=== PATIENT | female | born 1980 | race African-American/Black ===

== ENCOUNTER 2019-04-12 07:47 | Emergency (ER) | payer OTHER, SELFPAY ==
[2019-04-12] MEDS ORDERED: Ibuprofen 800 MG TAB ONE (08:05)
== END 2019-04-12 08:10 | disposition home or self-care (01) ==
LOC: ERS 07:47
DX: S39.012A Strain of muscle, fascia and tendon of lower back, initial encounter (principal); G43.909 Migraine, unspecified, not intractable, without status migrainosus; V79.49XA Driver of bus injured in collision with other motor vehicles in traffic accident, initial encounter
CPT/HCPCS: 99283